=== PATIENT | female | born 1975 | race Caucasian/White ===

== ENCOUNTER 2017-07-01 12:10 | Emergency (ER) | payer SELFPAY ==
--- NOTE | 2017-07-01 12:30 | ERPHSYRPT ---
- History of Present Illness Time Seen by Provider: 07/01/17 12:27 Source: patient Exam Limitations: no limitations Patient Subjective Stated Complaint: was putting camper up for the winter when it came down on right hand. states she felt nausea and weakness after it happened. Triage Nursing Assessment: to room per w/c. third digit right hand bruised and swollen. abrasion noted to finger. chemical cold pack on. Physician History: was putting camper up for the winter when it came down on right hand. states she felt nausea and weakness after it happened. no other injury Occurred: just prior to arrival Method of Injury: direct blow Quality: constant Severity of Pain-Max: moderate Severity of Pain-Current: mild Extremities Pain Location: hand: right, 3rd finger: right, 4th finger: right Modifying Factors: Improves With: cold therapy Associated Symptoms: none Allergies/Adverse Reactions: No Known Drug Allergies Allergy (Verified 07/01/17 12:12) Home Medications: No Home Meds [No Home Meds] 1 ea UD 07/16/16 [History] Hx Tetanus, Diphtheria Vaccination/Date Given: Yes (2015) Hx Influenza Vaccination/Date Given: No Hx Pneumococcal Vaccination/Date Given: No - Review of Systems Constitutional: No Symptoms Musculoskeletal: Injury, Joint Redness, Joint Pain, Joint Swelling, No Deformity - Past Medical History Pertinent Past Medical History: Yes Neurological History: No Pertinent History ENT History: No Pertinent History Cardiac History: No Pertinent History, Arrhythmia Respiratory History: No Pertinent History Endocrine Medical History: No Pertinent History Musculoskeletal History: No Pertinent History GI Medical History: No Pertinent History History: No Pertinent History Psycho-Social History: No Pertinent History Female Reproductive Disorders: No Pertinent History - Past Surgical History Past Surgical History: Yes Neuro Surgical History: No Pertinent History Cardiac: No Pertinent History Respiratory: No Pertinent History Gastrointestinal: Cholecystectomy Genitourinary: No Pertinent History Musculoskeletal: No Pertinent History Female Surgical History: Hysterectomy Other Surgical History: ablasion--heart - Social History Smoking Status: Current every day smoker How long have you smoked: 20 Exposure to second hand smoke: Yes Drug Use: none Patient Lives Alone: No - Nursing Vital Signs Nursing Vital Signs: Initial Vital Signs Temperature 98 F 07/01/17 12:12 Pulse Rate 92 H 07/01/17 12:12 Respiratory Rate 16 07/01/17 12:12 Blood Pressure 151/92 07/01/17 12:12 O2 Sat by Pulse Oximetry 94 L 07/01/17 12:12 Pain Scale Pain Intensity 10 - Physical Exam General Appearance: no apparent distress Hand Exam: ecchymosis, limited ROM, nail injury, soft tissue tenderness, swelling, No bone tenderness, No deformity, No infection, No laceration SpO2: 94 Oxygen Delivery: Room Air - Course Nursing assessment & vital signs reviewed: Yes - Radiology Exams Hand X-ray Interpretation: Reviewed by me (nondisplaced distal tuft finger fracture) Ordered Tests: Active Orders 24 hr Category Date Time Status Splint STAT Care 07/01/17 12:57 Active HAND (MINIMUM 3 VIEWS) Stat Exams 07/01/17 12:27 Taken Medication Summary Discontinued Medications Generic Name Dose Route Start Last Admin Trade Name Mari PRN Reason Stop Dose Admin Bacitracin Confirm 07/01/17 12:57 Baciguent Packet Administered 07/01/17 12:58 Dose 1 gm .ROUTE .STK-MED ONE Ketorolac Tromethamine 60 mg 07/01/17 13:00 Toradol 30 Mg Injection IM 07/01/17 13:01 STAT ONE - Progress Progress: improved, pain not gone completely Counseled pt/family regarding: diagnosis, need for follow-up, rad results - Departure Time of Disposition: 12:58 Departure Disposition: Home Clinical Impression: Fracture, finger, distal phalanx Qualifiers: Encounter type: initial encounter Finger: middle finger Fracture type: closed Fracture alignment: nondisplaced Laterality: right Qualified Code(s): S62.662A - Nondisplaced fracture of distal phalanx of right middle finger, initial encounter for closed fracture Condition: Good Critical Care Time: No Referrals: ADDIS WALLS MD [Primary Care Provider] - Instructions: Finger Fracture Additional Instructions: Please follow the instructions given to you. Please take your medication as prescribed if given. If symptoms recur or get worse, come back to the emergency room if you cannot reach your primary care physician, or call your primary care physician for an appointment. Again if your symptoms get worse, come back to the emergency room. Thanks for visiting emergency room, and let us take care of you. Prescriptions: Naproxen 375 mg [Naprosyn 375 mg] 375 mg PO Q8H #30 tablet
[2017-07-01] MEDS ORDERED: BACIGUENT PACKET ONE (12:57)
[2017-07-01] MEDS ORDERED: TORAdol 30 mg Injection IM ONE (13:00)
[2017-07-01] MEDS ORDERED: BACIGUENT PACKET TP ONE (13:12)
[2017-07-01] MEDS ORDERED: TORAdol 30 mg Injection ONE (13:14)
[2017-07-01 13:25] VITALS: BP 147/40; PULSE 81; O2SAT 95
--- NOTE | 2017-07-01 20:01 | XRAY ---
Indication: Third finger pain following injury. Comparison: None 3 views of the right hand demonstrates nondisplaced comminuted third tuft fracture with soft tissue swelling. No other bony, articular, or soft tissue abnormalities.
== END 2017-07-01 13:38 | disposition home or self-care (01) ==
LOC: ED 12:10
DX: S62.662A Nondisplaced fracture of distal phalanx of right middle finger, initial encounter for closed fracture (principal); W20.8XXA Other cause of strike by thrown, projected or falling object, initial encounter
CPT/HCPCS: 73130; 96372; 99284; J1885; A9270-GY

== ENCOUNTER 2022-04-04 11:28 | Observation (INO) | payer OTHER, SELFPAY ==
[2022-04-04] MEDS ORDERED: Adenocard IV 6 MG/2 ML IV ONE ×2 (11:36→11:43)
--- NOTE | 2022-04-04 11:51 | ERPHSYRPT ---
- History of Present Illness Time Seen by Provider: 04/04/22 11:45 Source: patient Exam Limitations: no limitations Physician History: Patient is a 46-year-old female presents to our ED for evaluation of heart palpitations. Patient states she was sitting at work developed heart palpitations and started to feel dizzy and diaphoretic. Patient admits to history of recurrent heart palpitations but states that it would typically resolve spontaneously. This particular episode did not resolve spontaneously. Upon arrival to our ED patient was in SVT with a rate of 205. Patient was maintaining good blood pressure she was mentating fine. We tried various vagal maneuvers and converted patient. No chest pain. No nausea vomiting or diarrhea. Symptoms are mild to moderate in intensity. No specific worsening improving factors. 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 Patient voices no other complaints or concerns at this time. Timing/Duration: today Severity: moderate Modifying Factors: Improves With: nothing Associated Symptoms: diaphoresis, other (Dizzy) Allergies/Adverse Reactions: No Known Drug Allergies Allergy (Verified 04/04/22 11:56) Home Medications: No Reportable Medications [No Reported Medications] 04/04/22 [History] Hx Tetanus, Diphtheria Vaccination/Date Given: Yes (2015) Hx Influenza Vaccination/Date Given: No Hx Pneumococcal Vaccination/Date Given: No - Review of Systems Constitutional: No Symptoms, No Fever, No Chills Eyes: No Symptoms Ears, Nose, & Throat: No Symptoms Respiratory: No Symptoms, No Cough, No Dyspnea Cardiac: No Symptoms, No Chest Pain, No Edema, No Syncope Abdominal/Gastrointestinal: No Symptoms, No Abdominal Pain, No Nausea, No Vomiting, No Diarrhea Genitourinary Symptoms: No Symptoms, No Dysuria Musculoskeletal: No Symptoms, No Back Pain, No Neck Pain Skin: No Symptoms, No Rash Neurological: No Symptoms, No Dizziness, No Focal Weakness, No Sensory Changes Psychological: No Symptoms Endocrine: No Symptoms Hematologic/Lymphatic: No Symptoms Immunological/Allergic: No Symptoms All Other Systems: Reviewed and Negative - Past Medical History Pertinent Past Medical History: Yes Neurological History: No Pertinent History ENT History: No Pertinent History Cardiac History: No Pertinent History, Arrhythmia Respiratory History: No Pertinent History Endocrine Medical History: No Pertinent History Musculoskeletal History: No Pertinent History GI Medical History: No Pertinent History History: No Pertinent History Psycho-Social History: No Pertinent History Female Reproductive Disorders: No Pertinent History - Past Surgical History Past Surgical History: Yes Neuro Surgical History: No Pertinent History Cardiac: No Pertinent History Respiratory: No Pertinent History Gastrointestinal: Cholecystectomy Genitourinary: No Pertinent History Musculoskeletal: No Pertinent History Female Surgical History: Hysterectomy Other Surgical History: ablasion--heart - Social History Smoking Status: Current every day smoker How long have you smoked: 20 Exposure to second hand smoke: Yes Drug Use: none Patient Lives Alone: No - Female History Hx Now: No - Nursing Vital Signs Nursing Vital Signs: Initial Vital Signs Temperature 96.8 F 04/04/22 11:30 Pulse Rate 217 H 04/04/22 11:30 Respiratory Rate 22 04/04/22 11:30 Blood Pressure 193/128 04/04/22 11:30 O2 Sat by Pulse Oximetry 99 04/04/22 11:30 Pain Scale Pain Intensity 6 - Physical Exam General Appearance: no apparent distress, mild distress (Mildly diaphoretic. Short of breath.), alert Eye Exam: PERRL/EOMI, eyes nml inspection Ears, Nose, Throat Exam: normal ENT inspection, TMs normal, pharynx normal, moist mucous membranes Neck Exam: normal inspection, non-tender, supple, full range of motion Respiratory Exam: normal breath sounds, lungs clear, airway intact, No chest tenderness, No respiratory distress Cardiovascular Exam: regular rate/rhythm, normal heart sounds, normal peripheral pulses Gastrointestinal/Abdomen Exam: soft, normal bowel sounds, No tenderness, No mass Back Exam: normal inspection, normal range of motion, No CVA tenderness, No vertebral tenderness Extremity Exam: normal inspection, normal range of motion, pelvis stable Neurologic Exam: alert, oriented x 3, cooperative, normal mood/affect, nml cerebellar function, nml station & gait, sensation nml, No motor deficits Skin Exam: normal color, warm, dry, No rash Lymphatic Exam: No adenopathy SpO2 Interpretation: normal SpO2: 99 O2 Delivery: Room Air - Course Nursing assessment & vital signs reviewed: Yes EKG Interpreted by Me: RATE (204, SVT), SVT, NORMAL AXIS, NORMAL INTERVALS - Radiology Exams Chest X-ray Interpretation: Teleradiologist Report (No acute cardiopulmonary process observed) Ordered Tests: Active Orders 24 hr Category Date Time Status Basic Acoustic Analyst STAT Care 04/04/22 11:43 Active EKG-ER Only STAT Care 04/04/22 11:43 Active IV Insertion STAT Care 04/04/22 11:43 Active Pulse Oximetry (ED) STAT Care 04/04/22 11:43 Active CHEST 1 VIEW (PORTABLE) Stat Exams 04/04/22 11:43 Completed CBC W DIFF Stat Lab 04/04/22 11:40 Completed CMP Stat Lab 04/04/22 11:40 Completed D-DIMER QUANTITATIVE Stat Lab 04/04/22 11:40 Completed MAGNESIUM Stat Lab 04/04/22 11:40 Completed NT PRO BNP Stat Lab 04/04/22 11:40 Completed TROPONIN Q3H Lab 04/04/22 11:40 Completed TROPONIN Q3H Lab 04/04/22 14:45 Ordered TROPONIN Q3H Lab 04/04/22 17:45 Ordered TROPONIN Q3H Lab 04/04/22 20:45 Ordered TROPONIN Q3H Lab 04/04/22 23:45 Ordered UA W/RFX CULTURE Stat Lab 04/04/22 12:42 Completed Urine Triage Profile Stat Lab 04/04/22 12:42 Completed Transfer Order Routine Transfer 04/04/22 Ordered Medication Summary Discontinued Medications Generic Name Dose Route Start Last Admin Trade Name Mari PRN Reason Stop Dose Admin Adenosine Confirm 04/04/22 11:36 Adenosine 6 Mg/2 Ml Vial Administered 04/04/22 11:37 Dose 6 mg IV .STK-MED ONE Adenosine 6 mg 04/04/22 11:43 04/04/22 14:22 Adenosine 6 Mg/2 Ml Vial IV 04/04/22 11:44 Not Given STAT ONE Lab/Rad Data: Laboratory Result Diagrams 04/04/22 11:40 04/04/22 11:40 Laboratory Results 04/04/22 04/04/22 04/04/22 Range/Units Unknown 12:42 12:42 WBC (4.0-10.5) x10^3/uL RBC (4.1-5.4) x10^6/uL Hgb (12.0-16.0) g/dL Hct (35-47) % MCV (78-100) fL MCH (26-32) pg MCHC (32-36) g/dL RDW (11.5-14.0) % Plt Count (150-450) x10^3/uL MPV (7.5-11.0) fL Gran % (36.0-66.0) % Immature Gran % (Auto) (0.00-0.4) % Nucleat RBC Rel Count (0.00-0.1) % Eos # (Auto) (0-0.5) x10^3/uL Immature Gran # (Auto) (0.00-0.03) x10^3u/L Absolute Lymphs (auto) (1.0-4.6) x10^3/uL Absolute Monos (auto) (0.0-1.3) x10^3/uL Absolute Nucleated RBC (0.00-0.01) x10^3u/L Lymphocytes % (24.0-44.0) % Monocytes % (0.0-12.0) % Eosinophils % (0.00-5.0) % Basophils % (0.0-0.4) % Absolute Granulocytes (1.4-6.9) x10^3/uL Basophils # (0-0.4) x10^3/uL D-Dimer (0.0-0.50) mg/L Sodium (137-145) mmol/L Potassium (3.5-5.1) mmol/L Chloride (98-107) mmol/L Carbon Dioxide (22-30) mmol/L Anion Gap (5-15) MEQ/L BUN (7-17) mg/dL Creatinine (0.52-1.04) mg/dL Estimated GFR ML/MIN Glucose (74-106) mg/dL Calcium (8.4-10.2) mg/dL Magnesium (1.6-2.3) mg/dL Total Bilirubin (0.2-1.3) mg/dL AST (14-36) U/L ALT (0-35) U/L Alkaline Phosphatase (38-126) U/L Troponin I (0.000-0.034) ng/mL NT-Pro-B Natriuret Pep (0-450) pg/mL Serum Total Protein (6.3-8.2) g/dL Albumin (3.5-5.0) g/dL Urinalys Dipstick Clnc MAIN LAB Urine Color YELLOW (YELLOW) Urine Appearance CLEAR (CLEAR) Urine pH 6.0 (5-6) Ur Specific [place] <=1.005 (1.005-1.025) POC Urine Protein Conf NEGATIVE (Negative) Urine Ketones NEGATIVE (NEGATIVE) Urine Nitrite NEGATIVE (NEGATIVE) Urine Bilirubin NEGATIVE (NEGATIVE) Urine Urobilinogen 0.2 (0-1) mg/dL Urine Leukocytes NEGATIVE (NEGATIVE) Urine WBC (Auto) NONE (0-5) /HPF Urine RBC (Auto) NONE (0-2) /HPF U Epithel Cells (Auto) NONE (FEW) /HPF Urine Bacteria (Auto) NONE (NEGATIVE) /HPF Urine RBC TRACE-LYSED (0-5) Delfino/ul Ur Culture Indicated? NO Urine Glucose NEGATIVE (NEGATIVE) mg/dL Urine Opiates Level NEGATIVE (NEGATIVE) Ur Methadone NEGATIVE (NEGATIVE) Urine Barbiturates NEGATIVE (NEGATIVE) Ur Phencyclidine (PCP) NEGATIVE (NEGATIVE) Urine Amphetamine NEGATIVE (NEGATIVE) U Benzodiazepine Level NEGATIVE (NEGATIVE) Urine Cocaine NEGATIVE (NEGATIVE) Urine Marijuana (THC) NEGATIVE (NEGATIVE) Influenza Type A Ag NEGATIVE (NEGATIVE) Influenza Type B Ag NEGATIVE (NEGATIVE) RSV (PCR) NEGATIVE (Negative) SARS-CoV-2 (PCR) NEGATIVE (NEGATIVE) 04/04/22 04/04/22 04/04/22 Range/Units 11:40 11:40 11:40 WBC (4.0-10.5) x10^3/uL RBC (4.1-5.4) x10^6/uL Hgb (12.0-16.0) g/dL Hct (35-47) % MCV (78-100) fL MCH (26-32) pg MCHC (32-36) g/dL RDW (11.5-14.0) % Plt Count (150-450) x10^3/uL MPV (7.5-11.0) fL Gran % (36.0-66.0) % Immature Gran % (Auto) (0.00-0.4) % Nucleat RBC Rel Count (0.00-0.1) % Eos # (Auto) (0-0.5) x10^3/uL Immature Gran # (Auto) (0.00-0.03) x10^3u/L Absolute Lymphs (auto) (1.0-4.6) x10^3/uL Absolute Monos (auto) (0.0-1.3) x10^3/uL Absolute Nucleated RBC (0.00-0.01) x10^3u/L Lymphocytes % (24.0-44.0) % Monocytes % (0.0-12.0) % Eosinophils % (0.00-5.0) % Basophils % (0.0-0.4) % Absolute Granulocytes (1.4-6.9) x10^3/uL Basophils # (0-0.4) x10^3/uL D-Dimer 0.26 (0.0-0.50) mg/L Sodium 136 L (137-145) mmol/L Potassium 3.8 (3.5-5.1) mmol/L Chloride 109 H (98-107) mmol/L Carbon Dioxide 15 L* (22-30) mmol/L Anion Gap 15.4 H (5-15) MEQ/L BUN 9 (7-17) mg/dL Creatinine 0.66 (0.52-1.04) mg/dL Estimated GFR > 60.0 ML/MIN Glucose 154 H (74-106) mg/dL Calcium 9.1 (8.4-10.2) mg/dL Magnesium 1.9 (1.6-2.3) mg/dL Total Bilirubin 0.40 (0.2-1.3) mg/dL AST 21 (14-36) U/L ALT 20 (0-35) U/L Alkaline Phosphatase 82 (38-126) U/L Troponin I < 0.012 (0.000-0.034) ng/mL NT-Pro-B Natriuret Pep 203 (0-450) pg/mL Serum Total Protein 7.6 (6.3-8.2) g/dL Albumin 4.1 (3.5-5.0) g/dL Urinalys Dipstick Clnc Urine Color (YELLOW) Urine Appearance (CLEAR) Urine pH (5-6) Ur Specific [place] (1.005-1.025) POC Urine Protein Conf (Negative) Urine Ketones (NEGATIVE) Urine Nitrite (NEGATIVE) Urine Bilirubin (NEGATIVE) Urine Urobilinogen (0-1) mg/dL Urine Leukocytes (NEGATIVE) Urine WBC (Auto) (0-5) /HPF Urine RBC (Auto) (0-2) /HPF U Epithel Cells (Auto) (FEW) /HPF Urine Bacteria (Auto) (NEGATIVE) /HPF Urine RBC (0-5) Delfino/ul Ur Culture Indicated? Urine Glucose (NEGATIVE) mg/dL Urine Opiates Level (NEGATIVE) Ur Methadone (NEGATIVE) Urine Barbiturates (NEGATIVE) Ur Phencyclidine (PCP) (NEGATIVE) Urine Amphetamine (NEGATIVE) U Benzodiazepine Level (NEGATIVE) Urine Cocaine (NEGATIVE) Urine Marijuana (THC) (NEGATIVE) Influenza Type A Ag (NEGATIVE) Influenza Type B Ag (NEGATIVE) RSV (PCR) (Negative) SARS-CoV-2 (PCR) (NEGATIVE) 04/04/22 Range/Units 11:40 WBC 14.7 H (4.0-10.5) x10^3/uL RBC 4.95 (4.1-5.4) x10^6/uL Hgb 15.0 (12.0-16.0) g/dL Hct 45.2 (35-47) % MCV 91.3 (78-100) fL MCH 30.3 (26-32) pg MCHC 33.2 (32-36) g/dL RDW 13.2 (11.5-14.0) % Plt Count 339 (150-450) x10^3/uL MPV 9.6 (7.5-11.0) fL Gran % 55.0 (36.0-66.0) % Immature Gran % (Auto) 0.5 H (0.00-0.4) % Nucleat RBC Rel Count 0.0 (0.00-0.1) % Eos # (Auto) 0.09 (0-0.5) x10^3/uL Immature Gran # (Auto) 0.07 H (0.00-0.03) x10^3u/L Absolute Lymphs (auto) 5.46 H (1.0-4.6) x10^3/uL Absolute Monos (auto) 0.94 (0.0-1.3) x10^3/uL Absolute Nucleated RBC 0.00 (0.00-0.01) x10^3u/L Lymphocytes % 37.1 (24.0-44.0) % Monocytes % 6.4 (0.0-12.0) % Eosinophils % 0.6 (0.00-5.0) % Basophils % 0.4 (0.0-0.4) % Absolute Granulocytes 8.08 H (1.4-6.9) x10^3/uL Basophils # 0.06 (0-0.4) x10^3/uL D-Dimer (0.0-0.50) mg/L Sodium (137-145) mmol/L Potassium (3.5-5.1) mmol/L Chloride (98-107) mmol/L Carbon Dioxide (22-30) mmol/L Anion Gap (5-15) MEQ/L BUN (7-17) mg/dL Creatinine (0.52-1.04) mg/dL Estimated GFR ML/MIN Glucose (74-106) mg/dL Calcium (8.4-10.2) mg/dL Magnesium (1.6-2.3) mg/dL Total Bilirubin (0.2-1.3) mg/dL AST (14-36) U/L ALT (0-35) U/L Alkaline Phosphatase (38-126) U/L Troponin I (0.000-0.034) ng/mL NT-Pro-B Natriuret Pep (0-450) pg/mL Serum Total Protein (6.3-8.2) g/dL Albumin (3.5-5.0) g/dL Urinalys Dipstick Clnc Urine Color (YELLOW) Urine Appearance (CLEAR) Urine pH (5-6) Ur Specific [place] (1.005-1.025) POC Urine Protein Conf (Negative) Urine Ketones (NEGATIVE) Urine Nitrite (NEGATIVE) Urine Bilirubin (NEGATIVE) Urine Urobilinogen (0-1) mg/dL Urine Leukocytes (NEGATIVE) Urine WBC (Auto) (0-5) /HPF Urine RBC (Auto) (0-2) /HPF U Epithel Cells (Auto) (FEW) /HPF Urine Bacteria (Auto) (NEGATIVE) /HPF Urine RBC (0-5) Delfino/ul Ur Culture Indicated? Urine Glucose (NEGATIVE) mg/dL Urine Opiates Level (NEGATIVE) Ur Methadone (NEGATIVE) Urine Barbiturates (NEGATIVE) Ur Phencyclidine (PCP) (NEGATIVE) Urine Amphetamine (NEGATIVE) U Benzodiazepine Level (NEGATIVE) Urine Cocaine (NEGATIVE) Urine Marijuana (THC) (NEGATIVE) Influenza Type A Ag (NEGATIVE) Influenza Type B Ag (NEGATIVE) RSV (PCR) (Negative) SARS-CoV-2 (PCR) (NEGATIVE) - Progress Progress: improved Progress Note: Patient reassessed. She feels well. No chest pain. SVT resolved after vagal maneuvers. Bicarb 15. This may be due to hyperventilation. Chest x-ray negative for acute cardiopulmonary pathology. COVID test negative. Case discussed with Dr. Walls who accepts admission to observation. Plan of care discussed with patient. She agrees to admission at [facility] for further evaluation and treatment. Portions of this note were created with voice recognition technology. There may be grammatical, spelling, punctuation or sound alike errors 04/04/22 14:[address] Yesy Will see patient in: hospital (observation) Counseled pt/family regarding: lab results, diagnosis, rad results - Departure Departure Disposition: Home Clinical Impression: SVT (supraventricular tachycardia), Lung granuloma Condition: Stable Critical Care Time: No Referrals: ADDIS WALLS MD [Primary Care Provider] - Follow up/PCP as directed
[2022-04-04 11:53] LABS: Absolute Neutrophil Ct (ANC) 8.08 x10^3/uL (1.4-6.9); Basophil (Absolute #) 0.06 x10^3/uL (0-0.4); Eosinophil % 0.6 % (0.00-5.0); Eosinophil (Absolute #) 0.09 x10^3/uL (0-0.5); Hematocrit 45.2 % (35-47); Lymphocyte (Absolute #) 5.46 x10^3/uL (1.0-4.6); Lymphocytes % 37.1 % (24.0-44.0); Mean Cell Volume 91.3 fL (78-100); Mean Corpuscular Hemoglobin 30.3 pg (26-32); Mean Corpuscular Hgb Concent. 33.2 g/dL (32-36); Mean Platelet Volume 9.6 fL (7.5-11.0); Monocyte (Absolute #) 0.94 x10^3/uL (0.0-1.3); Monocytes % 6.4 % (0.0-12.0); Platelet Count 339 x10^3/uL (150-450); Red Blood Count 4.95 x10^6/uL (4.1-5.4); Red Cell Distribution Width 13.2 % (11.5-14.0); White Blood Count 14.7 x10^3/uL (4.0-10.5)
[2022-04-04 12:15] LABS: ALBUMIN 4.1 g/dL (3.5-5.0); ALKALINE PHOSPHATASE 82 U/L (38-126); ANION GAP 15.4 MEQ/L (5-15); BLOOD UREA NITROGEN 9 mg/dL (7-17); CHLORIDE 109 mmol/L (98-107); Calcium 9.1 mg/dL (8.4-10.2); Creatinine 1 0.66 mg/dL (0.52-1.04); EST GLOMERULAR FILTRATION RATE > 60.0 ML/MIN; Glucose 154 mg/dL (74-106); MAGNESIUM 1.9 mg/dL (1.6-2.3); NT PRO BNP 203 pg/mL (0-450); Potassium 3.8 mmol/L (3.5-5.1); SGOT/AST 21 U/L (14-36); SGPT/ALT 20 U/L (0-35); SODIUM 136 mmol/L (137-145); Total Protein 7.6 g/dL (6.3-8.2)
--- NOTE | 2022-04-04 12:18 | XRAY ---
Exam: AP upright portable chest film from 04/04/2022. Comparison: [None.] Indication: 46-year-old female with sudden onset of chest pain with shortness of breath; heart palpitations; no past history of heart or lung problems. Findings: EKG leads are seen in place. The heart size and contour are normal. The nitin and mediastinal structures appear intact. The lung hernandez are well-expanded. There may be a small calcified granuloma behind the heart at the medial left lung base. No air space infiltrates, vascular congestion, pneumothorax, or pleural fluid is seen. No acute osseous process is seen. Impression: 1. No acute cardiopulmonary disease is seen.
[2022-04-04 12:20] LABS: Carbon Dioxide 15 mmol/L (22-30)
[2022-04-04 12:51] LABS: Appearance CLEAR (CLEAR); Bilirubin NEGATIVE (NEGATIVE); Glucose NEGATIVE (NEGATIVE); Ketones NEGATIVE (NEGATIVE); Protein,Urine Dip NEGATIVE (Negative); RBC TRACE-LYSED Ery/ul (0-5); Specific Gravity <=1.005 (1.005-1.025)
[2022-04-04 12:52] LABS: Dipstick done @ ? MAIN LAB; Nitrite NEGATIVE (NEGATIVE); Urine Cultured Indicated? NO; Urobilinogen 0.2 mg/dL (0-1)
[2022-04-04 12:55] LABS: Amphetamine,Urine NEGATIVE (NEGATIVE); Barbiturate,Urine NEGATIVE (NEGATIVE); Benzodiazepine,Urine NEGATIVE (NEGATIVE); Cocaine,Urine NEGATIVE (NEGATIVE); Methadone,Urine NEGATIVE (NEGATIVE); Opiate,Urine NEGATIVE (NEGATIVE); PCP,Urine NEGATIVE (NEGATIVE); THC,Urine NEGATIVE (NEGATIVE)
[2022-04-04 14:42] LABS: INFLUENZA A NEGATIVE (NEGATIVE); INFLUENZA B NEGATIVE (NEGATIVE); RESPIRATORY SYNCTIAL VIRUS NEGATIVE (Negative); SARS-CoV-2 Xpert Express NEGATIVE (NEGATIVE)
[2022-04-04] MEDS ORDERED: MAALOX ES 30 ML UNIT DOSE PO PRN (14:55)
[2022-04-04] MEDS ORDERED: MILK OF MAGNESIA 30 ML PO PRN (14:55)
[2022-04-04] MEDS ORDERED: Senokot-S Tablet PO PRN (14:55)
[2022-04-04] MEDS ORDERED: Zofran 4 MG/2 ML VIAL IV PRN (14:55)
[2022-04-04] MEDS ORDERED: TYLENOL 325 MG PO PRN (14:55)
[2022-04-04] MEDS: Cardizem CD PO SCH (17:45)
[2022-04-04] MEDS ORDERED: VENTOLIN COMMON CANISTER IH PRN (20:02)
[2022-04-05 08:00] VITALS: BP 144/67; PULSE 73; O2SAT 92
[2022-04-05] MEDS: Cardizem CD PO SCH (09:34)
--- NOTE | 2022-04-05 13:04 | PCM.SSS ---
History of Present Illness - Chief Complaint Chief Complaint: c/o palpitations for 1-2 days History of Present Illness: is a 46 year old female.resents to our ED for evaluation of heart palpitations. Patient states she was sitting at work developed heart palpitations and started to feel dizzy and diaphoretic. Patient admits to history of recurrent heart palpitations but states that it would typically resolve spontaneously. This particular episode did not resolve spontaneously. Upon arrival to our ED patient was in SVT with a rate of 205. Patient was maintaining good blood pressure she was mentating fine. We tried various vagal maneuvers and converted patient. No chest pain. No nausea vomiting or diarrhea. Symptoms are mild to moderate in intensity. No specific worsening improving factors. 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 Patient voices no other complaints or concerns at this time. - Review of Systems Constitutional: No Fever, No Chills Eyes: No Symptoms Ears, Nose, & Throat: No Symptoms Respiratory: No Cough, No Short Of Breath Cardiac: Palpitations, No Chest Pain, No Edema, No Syncope Abdominal/Gastrointestinal: No Abdominal Pain, No Nausea, No Vomiting, No Diarrhea Genitourinary Symptoms: No Dysuria Musculoskeletal: No Back Pain, No Neck Pain Skin: No Rash Neurological: No Dizziness, No Focal Weakness, No Sensory Changes Psychological: No Symptoms Endocrine: No Symptoms Hematologic/Lymphatic: No Symptoms Immunological/Allergic: No Symptoms Medications & Allergies Home Medications: Home Medication List Diltiazem HCl [Cartia Xt] 240 mg PO DAILY #30 04/05/22 [Rx] Allergies/Adverse Reactions: Allergies Allergy/AdvReac Type Severity Reaction Status Date / Time No Known Drug Allergies Allergy Verified 04/04/22 11:56 - Past Medical History Past Medical History: Yes Neurological History: No Pertinent History ENT History: No Pertinent History Cardiac History: No Pertinent History, Arrhythmia Respiratory History: No Pertinent History Endocrine Medical History: No Pertinent History Musculoskelatal History: No Pertinent History GI Medical History: No Pertinent History History: No Pertinent History Pyscho-Social History: No Pertinent History Reproductive Disorders: No Pertinent History - Female History Hx Last Menstrual Period: Don't have anymore Are you now?: No - Past Surgical History Past Surgical History: Yes Neuro Surgical History: No Pertinent History Cardiac History: No Pertinent History Respiratory Surgery: No Pertinent History GI Surgical History: Cholecystectomy Genitourinary Surgical Hx: No Pertinent History Musculskeletal Surgical Hx: No Pertinent History Female Surgical History: Hysterectomy Other Surgical History: ablasion--heart - Social History Smoking Status: Current every day smoker How long have you smoked: 20 Exposure to second hand smoke: Yes Alcohol: None Drug Use: none - Physical Exam Vital Signs: Vital Signs - 24 hr Temp Pulse Resp BP Pulse Ox 04/05/22 07:59 97.9 F 73 16 144/67 92 L 04/05/22 04:00 97.5 F 82 18 148/68 95 04/04/22 23:53 97.8 F 75 19 140/81 96 04/04/22 20:00 97.5 F 84 20 133/65 98 04/04/22 19:25 74 18 93 L 04/04/22 16:06 98.0 F 89 18 155/79 97 04/04/22 15:10 97.7 F 86 18 175/88 96 04/04/22 14:51 99 04/04/22 14:00 86 25 H 148/107 96 04/04/22 13:09 100 H 20 160/103 96 General Appearance: no apparent distress, alert Neurologic Exam: alert, oriented x 3, cooperative, normal mood/affect, nml cerebellar function, nml station & gait, sensation nml, No motor deficits Eye Exam: PERRL/EOMI, eyes nml inspection Ears, Nose, Throat Exam: normal ENT inspection, TMs normal, pharynx normal, moist mucous membranes Neck Exam: normal inspection, non-tender, supple, full range of motion Respiratory Exam: normal breath sounds, lungs clear, No respiratory distress Cardiovascular Exam: regular rate/rhythm, normal heart sounds, normal peripheral pulses Gastrointestinal/Abdomen Exam: soft, normal bowel sounds, No tenderness, No mass Back Exam: normal inspection, normal range of motion, No CVA tenderness, No vertebral tenderness Extremity Exam: normal inspection, normal range of motion, pelvis stable Skin Exam: normal color, warm, dry, No rash Lymphatic Exam: No adenopathy Results - Labs Lab/Micro Results: Lab Results-Last 24 Hours 04/04/22 04/04/22 04/04/22 Range/Units 15:14 17:35 21:00 Troponin I 0.023 0.031 0.025 (0.000-0.034) ng/mL Triglycerides (30-150) mg/dL Cholesterol (50-200) mg/dL LDL Cholesterol (30-100) mg/dL HDL Cholesterol (40-60) mg/dL Heart Disease Risk Ratio Influenza Type A Ag (NEGATIVE) Influenza Type B Ag (NEGATIVE) RSV (PCR) (Negative) SARS-CoV-2 (PCR) (NEGATIVE) 04/04/22 04/04/22 04/05/22 Range/Units 23:59 Unknown 04:35 Troponin I 0.025 (0.000-0.034) ng/mL Triglycerides 291 H (30-150) mg/dL Cholesterol 181 (50-200) mg/dL LDL Cholesterol 113 H (30-100) mg/dL HDL Cholesterol 26 L (40-60) mg/dL Heart Disease Risk Ratio 7.0 Influenza Type A Ag NEGATIVE (NEGATIVE) Influenza Type B Ag NEGATIVE (NEGATIVE) RSV (PCR) NEGATIVE (Negative) SARS-CoV-2 (PCR) NEGATIVE (NEGATIVE) - Radiology Impressions Radiology Exams & Impressions: Radiology Procedures Category Date Time Status CHEST 1 VIEW (PORTABLE) Stat Exams 04/04/22 11:43 Completed Assessment/Plan (1) SVT (supraventricular tachycardia) Status: Acute Code(s): I47.1 - SUPRAVENTRICULAR TACHYCARDIA Hospital Summary - Hospital Course Hospital Course: Chief Complaint Diagnosis SVT Allergies Allergy/AdvReac Type Severity Reaction Status Date / Time No Known Drug Allergies Allergy Verified 04/04/22 11:56 Vital Signs (Last 24 hours) Temp Pulse Resp BP Pulse Ox 04/05/22 07:59 97.9 F 73 16 144/67 92 L 04/05/22 04:00 97.5 F 82 18 148/68 95 04/04/22 23:53 97.8 F 75 19 140/81 96 04/04/22 20:00 97.5 F 84 20 133/65 98 04/04/22 19:25 74 18 93 L 04/04/22 16:06 98.0 F 89 18 155/79 97 04/04/22 15:10 97.7 F 86 18 175/88 96 04/04/22 14:51 99 04/04/22 14:00 86 25 H 148/107 96 04/04/22 13:09 100 H 20 160/103 96 Home Medications Medication Instructions Recorded Confirmed Last Taken Type Diltiazem HCl [Cartia Xt] 240 mg PO DAILY #30 04/05/22 Unknown Rx Current Medications Discontinued Medications Generic Name Dose Route Start Last Admin Trade Name Mari PRN Reason Stop Dose Admin Acetaminophen 650 mg 04/04/22 14:55 04/05/22 07:17 Acetaminophen 325 Mg Tablet PO 05/04/22 14:54 650 mg Q4H PRN PRN Administration PAIN AND/OR FEVER Adenosine Confirm 04/04/22 11:36 Adenosine 6 Mg/2 Ml Vial Administered 04/04/22 11:37 Dose 6 mg IV .STK-MED ONE Adenosine 6 mg 04/04/22 11:43 04/04/22 14:22 Adenosine 6 Mg/2 Ml Vial IV 04/04/22 11:44 Not Given STAT ONE Al Hydrox/Mg Hydrox/Simethicone 30 ml 04/04/22 14:55 Mag Hydrox/Al Hydrox/Simeth 30 Ml Udcup PO 05/04/22 14:54 Q4H PRN PRN INDIGESTION Albuterol Sulfate 4 puff 04/04/22 20:02 04/04/22 19:25 Albuterol Common Canister Inhaler IH 05/04/22 20:01 4 puff 1XONLY PRN Administration SHORTNESS OF BREATH/WHEEZING Diltiazem HCl 240 mg 04/04/22 17:45 04/05/22 09:34 Diltiazem Hcl Cd 120 Mg Cap.Sr.24h PO 05/04/22 17:44 240 mg DAILY JOSHUA Administration Magnesium Hydroxide 30 - 60 ml 04/04/22 14:55 Magnesium Hydroxide 30 Ml Udcup PO 05/04/22 14:54 QDP PRN CONSTIPATION Ondansetron HCl 4 mg 04/04/22 14:55 Ondansetron Hcl 4 Mg/2 Ml Vial IV 05/04/22 14:54 Q4H PRN PRN NAUSEA/VOMITING Senna/Docusate Sodium 2 udtab 04/04/22 14:55 Senna/Docusate Sodium 1 Udtab Tablet PO 05/04/22 14:54 BID PRN PRN CONSTIPATION Intake & Output (Last 24 hours) 04/03/22 04/04/22 04/05/22 04/06/22 11:59 11:59 11:59 11:59 Intake Total 1500 Balance 1500 Weight 101.8 kg 101.8 kg Laboratory Results (Last 24 hours) 04/05/22 04/04/22 04/04/22 04:35 Unknown 23:59 Troponin I 0.025 Triglycerides 291 H Cholesterol 181 LDL Cholesterol 113 H HDL Cholesterol 26 L Heart Disease Risk Ratio 7.0 Influenza Type A Ag NEGATIVE Influenza Type B Ag NEGATIVE RSV (PCR) NEGATIVE SARS-CoV-2 (PCR) NEGATIVE 04/04/22 04/04/22 04/04/22 21:00 17:35 15:14 Troponin I 0.025 0.031 0.023 Triglycerides Cholesterol LDL Cholesterol HDL Cholesterol Heart Disease Risk Ratio Influenza Type A Ag Influenza Type B Ag RSV (PCR) SARS-CoV-2 (PCR) Orders (Last 24 hours) Category Date Time Status Bedrest with BRP/BSC ROUTINE Activity 04/04/22 14:55 Completed Code Status Order ROUTINE Care 04/04/22 14:55 Completed IV Care Q6H Care 04/04/22 14:55 Completed Implement Chest Pain Pathway ROUTINE Care 04/04/22 14:[address] in Observation ROUTINE Care 04/04/22 14:55 Completed Tor[place], Apply ROUTINE Care 04/04/22 14:55 Completed Telemetry q6h Care 04/04/22 14:55 Completed Weight,Daily 0600 Care 04/04/22 14:55 Completed Heart-Healthy Diet Diet 04/04/22 Dinner Completed Discharge Routine Discharge 04/05/22 Ordered LIPID PROFILE AM.LAB Lab 04/05/22 04:35 Completed TROPONIN Q3H Lab 04/04/22 15:14 Completed TROPONIN Q3H Lab 04/04/22 17:35 Completed TROPONIN Q3H Lab 04/04/22 21:00 Completed TROPONIN Q3H Lab 04/04/22 23:59 Completed UA W/RFX CULTURE Stat Lab 04/04/22 12:42 Completed Urine Triage Profile Stat Lab 04/04/22 12:42 Completed Acetaminophen 325 mg [Tylenol 325 mg] Med 04/04/22 14:55 Discontinued 650 mg PO Q4H PRN PRN Albuterol Common Canister [Ventolin Common Canister* Med 04/04/22 20:02 Discontinued ] 4 puff IH 1XONLY PRN Diltiazem HCl Cd [Cardizem CD ] Med 04/04/22 17:45 Discontinued 240 mg PO DAILY Mag Hydrox/Al Hydrox/Simeth [Maalox Es 30 ml Unit Med 04/04/22 14:55 Discontinued Dose] 30 ml PO Q4H PRN PRN Magnesium Hydroxide 30 ml [Milk of Magnesia 30 ml Med 04/04/22 14:55 Discontinued ] 30 - 60 ml PO QDP PRN Ondansetron HCl 4 mg/2 ml [Zofran 4 MG/2 ML VIAL] Med 04/04/22 14:55 Discontinued 4 mg IV Q4H PRN PRN Senna/Docusate Sodium Tab [Senokot-S Tablet] Med 04/04/22 14:55 Discontinued 2 udtab PO BID PRN PRN EKG ROUTINE RT 04/04/22 19:44 Completed EKG ROUTINE RT 04/05/22 05:00 Completed EKG ROUTINE RT 04/06/22 05:00 Completed EKG ROUTINE RT 04/07/22 05:00 Completed Pulse Oximetry Q4H RT 04/04/22 14:55 Completed Respiratory Therapy Assessment DAILY RT 04/04/22 20:03 Completed Patient Care Notes (Last 24 hours) 04/04/22 17:44 Nursing Note by Patricia Montiel pt in and out SVT, can get pt to convert by having her blow in straw but SR only lasts a few minutes, pt denies palpitations or chest pain, dr walls updated by phone and cardizem 240mg po ordered and given. Initialized on 04/04/22 17:44 - END OF NOTE - Vitals & Intake/Output Vital Signs: Vital Signs Temperature 97.9 F 04/05/22 07:59 Pulse Rate 73 04/05/22 07:59 Respiratory Rate 16 04/05/22 07:59 Blood Pressure 144/67 04/05/22 07:59 O2 Sat by Pulse Oximetry 92 L 04/05/22 07:59 Intake & Output: Intake & Output 04/03/22 04/04/22 04/05/22 04/06/22 11:59 11:59 11:59 11:59 Intake Total 1500 Balance 1500 Weight 101.8 kg 101.8 kg - Lab Result Diagrams: 04/04/22 11:40 04/04/22 11:40 Lab Results-Last 24 Hrs: Lab Results-Last 24 Hours 07/04/04/22 04/04/22 Range/Units 15:14 17:35 21:00 Troponin I 0.023 0.031 0.025 (0.000-0.034) ng/mL Triglycerides (30-150) mg/dL Cholesterol (50-200) mg/dL LDL Cholesterol (30-100) mg/dL HDL Cholesterol (40-60) mg/dL Heart Disease Risk Ratio Influenza Type A Ag (NEGATIVE) Influenza Type B Ag (NEGATIVE) RSV (PCR) (Negative) SARS-CoV-2 (PCR) (NEGATIVE) 04/04/22 04/04/22 04/05/22 Range/Units 23:59 Unknown 04:35 Troponin I 0.025 (0.000-0.034) ng/mL Triglycerides 291 H (30-150) mg/dL Cholesterol 181 (50-200) mg/dL LDL Cholesterol 113 H (30-100) mg/dL HDL Cholesterol 26 L (40-60) mg/dL Heart Disease Risk Ratio 7.0 Influenza Type A Ag NEGATIVE (NEGATIVE) Influenza Type B Ag NEGATIVE (NEGATIVE) RSV (PCR) NEGATIVE (Negative) SARS-CoV-2 (PCR) NEGATIVE (NEGATIVE) - Radiology Exams Ordered Rad Exams-Entire Visit: Radiology Procedures Category Date Time Status CHEST 1 VIEW (PORTABLE) Stat Exams 04/04/22 11:43 Completed - Procedures and Test Procedures and Tests throughout Hospitalization: Therapy Orders & Screens 04/04/22 19:44 EKG ROUTINE Comment: Diagnosis: SVT 04/04/22 20:03 Respiratory Therapy Assessment DAILY Comment: Diagnosis: SVT 04/05/22 05:00 EKG ROUTINE Comment: Diagnosis: SVT 04/06/22 05:00 EKG ROUTINE Comment: Diagnosis: SVT 04/07/22 05:00 EKG ROUTINE Comment: Diagnosis: SVT - Discharge Discharge Date: 04/05/22 Disposition: Home, Self-Care Condition: Stable Prescriptions: New Diltiazem HCl [Cartia Xt] 240 mg PO DAILY #30 Instructions: Supraventricular Tachycardia (SVT), Diltiazem Follow up with: ADDIS WALLS MD [Primary Care Provider] - 04/11/22 2:00 pm
== END 2022-04-05 09:48 | disposition home or self-care (01) ==
LOC: ED 11:28 → MED SURG 14:52
PROVIDERS: ADMIT General Practice; ATTEND General Practice
DX: I47.1 Supraventricular tachycardia (principal); R42 Dizziness and giddiness; Z72.0 Tobacco use; Z79.899 Other long term (current) drug therapy; Z20.828 Contact with and (suspected) exposure to other viral communicable diseases
CPT/HCPCS: 0241U; 36000; 36415; 71045; 80053; 80061; 80307; 81015; 83721; 83735; 83880; 84484; 85025; 85379; 93005; 93041; 94640; 94760; 99285; J0153; A9270-GY

== ENCOUNTER 2023-12-27 09:52 | Day surgery (SDC) | payer BC ==
--- NOTE | 2023-12-26 09:52 | HP ---
DATE OF SURGERY: 12/27/2023 HISTORY OF PRESENT ILLNESS: The patient is a 48-year-old female who presents with need for endoscopy. She has not had a colonoscopy to date. She has some left lower quadrant pain that comes and goes. She denies heartburn. She denies family history of colon cancer. She denies any other symptoms at this time. PAST MEDICAL HISTORY: Hypertension. PAST SURGICAL HISTORY: Cholecystectomy. Cardiac ablation for atrial fibrillation. Hysterectomy. ALLERGIES: NKDA. MEDICATIONS: Hydrochlorothiazide, Lisinopril. FAMILY HISTORY: Unknown. SOCIAL HISTORY: Current smoker, occasional alcohol. REVIEW OF SYSTEMS: CONSTITUTIONAL: Denies fever or chills. CHEST: Denies shortness of breath. CVS: Denies chest pain. ABDOMEN: Denies abdominal pain. PHYSICAL EXAMINATION: GENERAL: No acute distress. CHEST: Nonlabored. No shortness of breath. CVS: Regular rate and rhythm. ABDOMEN: Soft. IMPRESSION: Screening. PLAN: Colonoscopy with Dr. Constantino Stewart. As dictated by Yesica Mason NP.
[2023-12-27] MEDS: Lactated Ringers 1,000 ML IV SCH (10:06)
[2023-12-27] MEDS ORDERED: DIPRIVAN 200 MG/20 ML IV ONE ×2 (11:36→11:52)
[2023-12-27] MEDS ORDERED: Xylocaine-Mpf 2% 5 Ml Vial ONE (11:37)
[2023-12-27 12:33] VITALS: TEMP 96.3
[2023-12-27 12:52] VITALS: BP 152/92; PULSE 52; RESP 16; O2SAT 98
--- NOTE | 2023-12-27 13:38 | OP ---
SURGERY DATE/TIME: 12/27/2023 1137 PREOPERATIVE DIAGNOSIS: Screening. POSTOPERATIVE DIAGNOSIS: Normal examination. PROCEDURE: Colonoscopy to cecum. SURGEON: Constantino Stewart M.D. ANESTHESIA: MAC. COMPLICATIONS: None. CONDITION: Stable. INDICATION: The patient presents for screening. She is 48. She had excellent bowel prep. DESCRIPTION OF PROCEDURE: She is taken to endoscopy. Left lateral decubitus position. Anal digital examination satisfactory. Scope introduced. Scope advanced to the cecum. Base of the cecum, ileocecal valve, appendiceal orifice normal. Ascending, hepatic, transverse, splenic, descending, sigmoid, rectum, anus normal. PLAN: Follow up five to ten years.
== END 2023-12-27 13:00 | disposition home or self-care (01) ==
LOC: SDC 09:52
PROVIDERS: ATTEND Surgery
DX: Z12.11 Encounter for screening for malignant neoplasm of colon (principal); I10 Essential (primary) hypertension
CPT/HCPCS: 93005; J2704

== ENCOUNTER 2024-08-26 22:59 | Emergency (ER) | payer BC ==
--- NOTE | 2024-08-27 00:06 | ERPHSYRPT ---
- History of Present Illness Time Seen by Provider: 08/26/24 23:30 Source: patient Exam Limitations: no limitations Patient Subjective Stated Complaint: c/o upper back pain Triage Nursing Assessment: patient brought to ED by daughter with c/o upper back pain. rates pain 10/10 thats more intense on the elft side. patient states that the pain started on the 14th and hasn't gotten any better. pt also stated that the pain has made her short of breath. patient is hypertensive, skin w/n/d, gait steady, patient doesn't appear to be in any distress at this time. Physician History: 49-year-old female presents to our emergency department for evaluation of left upper back pain that started approximately 4 days ago. Pain described as an ache that is localized. Pain worse with movement and palpation. Pain improved with rest. No trauma no fever. However patient states that she does experience some level of shortness of breath with her pain. No nausea vomiting or diaphoresis. Daughter at bedside. They voiced no other complaints or concerns at this time. Patient declined pain medication. She states she took Tylenol just prior to arrival. Portions of this note were created with voice recognition technology. There may be grammatical, spelling, punctuation or sound alike errors Timing/Duration: today Method of Injury: unknown Quality: aching Back Pain Location: T-spine Severity of Pain-Max: moderate Severity of Pain-Current: moderate Modifying Factors: Improves With: movement Associated Symptoms: denies symptoms Previous symptoms: no prior history Allergies/Adverse Reactions: No Known Drug Allergies Allergy (Verified 08/26/24 23:31) Home Medications: Atorvastatin Calcium 10 mg PO DAILY 12/14/23 [History] Lisinopril 10 mg [Zestril 10 MG] 10 mg PO DAILY 12/14/23 [History] hydroCHLOROthiazide [Hydrochlorothiazide] 12.5 mg PO DAILY 12/14/23 [History] Hx Tetanus, Diphtheria Vaccination/Date Given: Yes Hx Influenza Vaccination/Date Given: No Hx Pneumococcal Vaccination/Date Given: No Travel Risk - International Travel Have you traveled outside of the country in past 3 weeks: No - Emerging Infectious Disease Are you exhibiting symptoms associated with any current EIDs: No - Review of Systems Constitutional: No Symptoms, No Fever, No Chills Eyes: No Symptoms Ears, Nose, & Throat: No Symptoms Respiratory: No Symptoms, No Cough, No Dyspnea Cardiac: No Symptoms, No Chest Pain, No Edema, No Syncope Abdominal/Gastrointestinal: No Symptoms, No Abdominal Pain, No Nausea, No Vomiting, No Diarrhea Genitourinary Symptoms: No Symptoms, No Dysuria Musculoskeletal: No Symptoms, No Back Pain, No Neck Pain Skin: No Symptoms, No Rash Neurological: No Symptoms, No Dizziness, No Focal Weakness, No Sensory Changes Psychological: No Symptoms Endocrine: No Symptoms Hematologic/Lymphatic: No Symptoms Immunological/Allergic: No Symptoms All Other Systems: Reviewed and Negative - Past Medical History Pertinent Past Medical History: Yes Neurological History: No Pertinent History ENT History: No Pertinent History Cardiac History: Arrhythmia, Hypertension Respiratory History: No Pertinent History Endocrine Medical History: No Pertinent History Musculoskeletal History: No Pertinent History GI Medical History: No Pertinent History History: No Pertinent History Psycho-Social History: No Pertinent History Female Reproductive Disorders: No Pertinent History - Past Surgical History Past Surgical History: Yes Neuro Surgical History: No Pertinent History Cardiac: Other Respiratory: No Pertinent History Gastrointestinal: Cholecystectomy Genitourinary: No Pertinent History Musculoskeletal: No Pertinent History Female Surgical History: Hysterectomy Other Surgical History: ablasion--heart times 2 - Female History Hx Last Menstrual Period: hysterectomy 19 years ago Hx Now: No - Social History Smoking Status: Current every day smoker How long have you smoked: 30 years Exposure to second hand smoke: No Drug Use: none Patient Lives Alone: No - Social Determinants of Health Will the patient participate in the screening: Declined to provide - Nursing Vital Signs Nursing Vital Signs: Initial Vital Signs Respiratory Rate 19 08/26/ 23:17 Pain Scale Pain Intensity [Back] 10 Pain Intensity 10 - Physical Exam General Appearance: no apparent distress, alert Eye Exam: PERRL/EOMI, eyes nml inspection Ears, Nose, Throat Exam: normal ENT inspection Neck Exam: normal inspection, full range of motion, No meningismus, No midline tenderness Respiratory Exam: normal breath sounds, lungs clear, airway intact, No respiratory distress Cardiovascular Exam: regular rate/rhythm, normal heart sounds, normal peripheral pulses Gastrointestinal Exam: soft, No tenderness, No mass Extremity Exam: normal inspection, normal range of motion, No calf tenderness, No pedal edema Neurologic Exam: alert, oriented x 3, cooperative, manager cafe II-XII nml as tested, normal mood/affect, nml station & gait, sensation nml, No motor deficits Skin Exam: normal color, warm, dry, No rash Lymphatic Exam: No adenopathy SpO2 Interpretation: normal O2 Delivery: Room Air - Course Nursing assessment & vital signs reviewed: Yes EKG Interpreted by Me: RATE ([id number]), Sinus Rhythm, NORMAL AXIS, NORMAL INTERVALS, NORMAL QRS - CT Exams Chest CT Interpretation: Tele-radiologist Report (Bilateral pulmonary nodules grade 2 benign in appearance very low likelihood of malignancy) Ordered Tests: Active Orders 24 hr Category Date Time Status Quilt Stuffer STAT Care 08/27/24 00:07 Active EKG-ER Only STAT Care 08/27/24 00:06 Active IV Insertion STAT Care 08/27/24 00:06 Active Pulse Oximetry (ED) STAT Care 08/27/24 00:06 Active CHEST WITHOUT CONTRAST [CT] Stat Exams 08/27/24 01:09 Completed CBC W DIFF Stat Lab 08/27/24 00:20 Completed CMP Stat Lab 08/27/24 00:20 Completed D-DIMER QUANTITATIVE Stat Lab 08/27/24 00:20 Completed TROPONIN Q4H Lab 08/27/24 00:20 Completed TROPONIN Q4H Lab 08/27/24 04:15 Ordered TROPONIN Q4H Lab 08/27/24 08:15 Ordered Medication Summary Discontinued Medications Generic Name Dose Route Start Last Admin Trade Name Freq PRN Reason Stop Dose Admin Ketorolac Tromethamine 30 mg 08/27/24 01:08 08/27/24 01:10 Ketorolac Tromethamine 30 Mg/Ml Inj IV 08/27/24 01:09 30 mg STAT ONE Administration Ketorolac Tromethamine Confirm 08/27/24 01:10 Ketorolac Tromethamine 30 Mg/Ml Inj Administered 08/27/24 01:11 Dose 30 mg .ROUTE .STK-MED ONE Morphine Sulfate 4 mg 08/27/24 03:12 08/27/24 03:17 Morphine Sulfate 4 Mg/Ml Injection IV 08/27/24 03:13 4 mg STAT ONE Administration Morphine Sulfate Confirm 08/27/24 03:16 Morphine Sulfate 4 Mg/Ml Injection Administered 08/27/24 03:17 Dose 4 mg .ROUTE .STK-MED ONE Lab/Rad Data: Laboratory Result Diagrams 08/27/24 00:20 08/27/24 00:20 Laboratory Results 08/27/24 08/27/24 08/27/24 Range/Units 00:20 00:20 00:20 WBC (3.98-10.04) x10^3/uL RBC (3.93-5.22) x10^6/uL Hgb (11.2-15.7) g/dL Hct (34.1-44.9) % MCV (79.4-94.8) fL MCH (25.6-32.2) pg MCHC (32.2-35.5) g/dL RDW (11.7-14.4) % Plt Count (182-369) x10^3/uL MPV (9.4-12.3) fL Gran % (34.0-71.1) % Immature Gran % (Auto) (0.001-0.429) % Nucleat RBC Rel Count (0.00-0.2) % Eos # (Auto) (0.04-0.36) x10^3/uL Immature Gran # (Auto) (0.001-0.031) x10^3u/L Absolute Lymphs (auto) (1.18-3.74) x10^3/uL Absolute Monos (auto) (0.24-0.86) x10^3/uL Absolute Nucleated RBC (0.00-0.012) x10^3u/L Lymphocytes % (19.3-51.7) % Monocytes % (4.7-12.5) % Eosinophils % (0.7-5.8) % Basophils % (0.1-1.2) % Absolute Granulocytes (1.56-6.13) x10^3/uL Basophils # (0.01-0.08) x10^3/uL D-Dimer 0.40 (0.0-0.50) mg/L Sodium 137 (135-145) mmol/L Potassium 4.0 (3.5-5.1) mmol/L Chloride 107 (98-107) mmol/L Carbon Dioxide 22 (22-30) mmol/L Anion Gap 12.2 (5-15) MEQ/L BUN 17 (7-17) mg/dL Creatinine 0.88 (0.52-1.04) mg/dL Estimated GFR 80.0 ML/MIN Glucose 100 (74-106) mg/dL Calcium 9.5 (8.4-10.2) mg/dL Total Bilirubin 0.30 (0.2-1.3) mg/dL AST 23 (14-36) U/L ALT 20 (0-35) U/L Alkaline Phosphatase 76 (38-126) U/L Troponin I < 0.012 (0.000-0.033) ng/mL Serum Total Protein 7.1 (6.3-8.2) g/dL Albumin 4.3 (3.5-5.0) g/dL 08/27/24 Range/Units 00:20 WBC 13.0 H (3.98-10.04) x10^3/uL RBC 4.85 (3.93-5.22) x10^6/uL Hgb 14.4 (11.2-15.7) g/dL Hct 42.9 (34.1-44.9) % MCV 88.5 (79.4-94.8) fL MCH 29.7 (25.6-32.2) pg MCHC 33.6 (32.2-35.5) g/dL RDW 12.8 (11.7-14.4) % Plt Count 314 (182-369) x10^3/uL MPV 9.7 (9.4-12.3) fL Gran % 54.2 (34.0-71.1) % Immature Gran % (Auto) 0.4 (0.001-0.429) % Nucleat RBC Rel Count 0.0 (0.00-0.2) % Eos # (Auto) 0.20 (0.04-0.36) x10^3/uL Immature Gran # (Auto) 0.05 H (0.001-0.031) x10^3u/L Absolute Lymphs (auto) 4.82 H (1.18-3.74) x10^3/uL Absolute Monos (auto) 0.84 (0.24-0.86) x10^3/uL Absolute Nucleated RBC 0.00 (0.00-0.012) x10^3u/L Lymphocytes % 37.0 (19.3-51.7) % Monocytes % 6.4 (4.7-12.5) % Eosinophils % 1.5 (0.7-5.8) % Basophils % 0.5 (0.1-1.2) % Absolute Granulocytes 7.05 H (1.56-6.13) x10^3/uL Basophils # 0.07 (0.01-0.08) x10^3/uL D-Dimer (0.0-0.50) mg/L Sodium (135-145) mmol/L Potassium (3.5-5.1) mmol/L Chloride (98-107) mmol/L Carbon Dioxide (22-30) mmol/L Anion Gap (5-15) MEQ/L BUN (7-17) mg/dL Creatinine (0.52-1.04) mg/dL Estimated GFR ML/MIN Glucose (74-106) mg/dL Calcium (8.4-10.2) mg/dL Total Bilirubin (0.2-1.3) mg/dL AST (14-36) U/L ALT (0-35) U/L Alkaline Phosphatase (38-126) U/L Troponin I (0.000-0.033) ng/mL Serum Total Protein (6.3-8.2) g/dL Albumin (3.5-5.0) g/dL - Progress Progress: improved Progress Note: 49-year-old female presents to emergency department for evaluation of left upper back pain. Laboratory workup essentially unremarkable. Troponin negative x 2. CT chest without shows bilateral pulmonary nodules. Nodules appear benign. Otherwise CAT scan is negative. No acute findings. Patient received Toradol for pain control followed by morphine. Pain now resolved. No indication for further workup at this time will discharge home. Patient agrees to follow-up with her primary care doctor within 48 hours for reevaluation. She voices no other complaints or concerns at this time. Portions of this note were created with voice recognition technology. There may be grammatical, spelling, punctuation or sound alike errors Complexity of problem addressed is moderate acute complicated. No critical care time. Complex of data reviewed and analyzed is moderate. Test ordered chest reviewed results analyzed and correlated clinically with history and physical exam. Risk of complication and or risk of morbidity/mortality of patient management is low. Vital stable. Time spent to discharge patient is approximately 20 minutes. Plan of care established for shared decision making. No social determinants of health present to impede follow-up. Portions of this note were created with voice recognition technology. There may be grammatical, spelling, punctuation or sound alike errors 08/27/24 03:37 Counseled pt/family regarding: lab results, diagnosis, need for follow-up, rad results - Departure Departure Disposition: Home Clinical Impression: Back pain, Lung nodule Condition: Stable Critical Care Time: No Referrals: JOJO RANDALL, [Primary Care Provider] - Follow up/PCP as directed Additional Instructions: Discharge/Care Plan BRYCE BROUSSARD was seen on 08/27/24 in the Emergency Room. The patient was counseled regarding Diagnosis,Lab results, Imaging studies, need for follow up and when to return to the Emergency Room. Prescriptions given: Discharge Note I have spoken with the patient and/or caregivers. I have explained the patient's condition, diagnosis and treatment plan based on the information available to me at this time. I have answered the patient's and/or caregiver's questions and addressed any concerns. The patient and/or caregivers have as good understanding of the patient's diagnosis, condition and treatment plan as can be expected at this point. The vital signs have been stable. The patient's condition is stable and appropriate for discharge from the emergency department. The patient will pursue further outpatient evaluation with the primary care physician or other designated or consulting physician as outlined in the discharge instructions. The patient and/or caregivers are agreeable to this plan of care and follow-up instructions have been explained in detail. The patient and/or caregivers have received these instruction. The patient/and or caregivers are aware that any significant change in condition or worsening of symptoms should prompt an immediate return to this or the closest emergency department or call 911.
[2024-08-27 00:34] LABS: Absolute Neutrophil Ct (ANC) 7.05 x10^3/uL (1.56-6.13); BASOPHIL % 0.5 % (0.1-1.2); Basophil (Absolute #) 0.07 x10^3/uL (0.01-0.08); Eosinophil % 1.5 % (0.7-5.8); Hematocrit 42.9 % (34.1-44.9); Hemoglobin 14.4 g/dL (11.2-15.7); IMMATURE GRAN # 0.05 x10^3u/L (0.001-0.031); IMMATURE GRAN % 0.4 % (0.001-0.429); Lymphocyte (Absolute #) 4.82 x10^3/uL (1.18-3.74); Mean Cell Volume 88.5 fL (79.4-94.8); Mean Corpuscular Hemoglobin 29.7 pg (25.6-32.2); Mean Corpuscular Hgb Concent. 33.6 g/dL (32.2-35.5); Mean Platelet Volume 9.7 fL (9.4-12.3); Monocyte (Absolute #) 0.84 x10^3/uL (0.24-0.86); Monocytes % 6.4 % (4.7-12.5); Neutrophil % 54.2 % (34.0-71.1); Platelet Count 314 x10^3/uL (182-369); Red Blood Count 4.85 x10^6/uL (3.93-5.22); Red Cell Distribution Width 12.8 % (11.7-14.4)
[2024-08-27 00:47] LABS: ALBUMIN 4.3 g/dL (3.5-5.0); ANION GAP 12.2 MEQ/L (5-15); BILIRUBIN,TOTAL 0.3 mg/dL (0.2-1.3); Calcium 9.5 mg/dL (8.4-10.2); Creatinine 1 0.88 mg/dL (0.52-1.04); Total Protein 7.1 g/dL (6.3-8.2)
[2024-08-27] MEDS ORDERED: TORAdol 30 mg Injection ONE (01:10)
[2024-08-27] MEDS: TORAdol 30 mg Injection IV ONE (01:10)
[2024-08-27 02:47] VITALS: O2SAT 95
[2024-08-27 03:07] VITALS: BP 179/105; PULSE 73; RESP 23
[2024-08-27] MEDS ORDERED: MORPHINE SULFATE 4 MG INJ ONE (03:16)
[2024-08-27] MEDS: MORPHINE SULFATE 4 MG INJ IV ONE (03:17)
--- NOTE | 2024-08-27 03:18 | XRAY ---
CLINICAL HISTORY: pain COMPARISON: No prior studies are available for comparison. TECHNIQUE: Contiguous 3.[address] images of the chest were acquired without administration of intravenous contrast. Coronal and sagittal reconstructions were obtained with axial MIPi images. One of the following dose reduction techniques were utilized for this exam: Automated exposure control, adjustment of the mA and/or kV according to patient size, use of iterative reconstruction. FINDINGS: Pulmonary Parenchyma: Lungs are clear with no evidence of consolidation, collapse, or focal lesions. Bilateral multiple subpleural and peripheral pulmonary nodules noted at upper and lower lobes of ground glass and soft tissue density as follows: Right upper lung apical segment subpleural pulmonary nodule measuring 4 mm. Left upper lobe posterior segment subpleural nodule measuring 2.3 mm. Right upper lobe posterior segment subpleural nodule measuring 4.6 mm Right middle lobe lateral segment subpleural nodule measuring 4 mm. Right lower lobe apical segment subpleural nodule measuring 3.4 mm Right lower lobe apical segment nodule measuring 5 mm Pleural-based right lower lobe nodule measuring 6 mm Right lower lobe posterior segment pleural-based density nodules 3 mm Right lower lobe lateral segment subpleural nodule measuring 2 mm. Left lower lobe posterior segment preliminarily based ground-glass density nodule measuring 2 mm Left lower lobe posterior segment tiny soft tissue density nodule measuring 1.7 mm 2 small ground-glass density nodules noted at the inferior lingula measuring 2 and 3 mm respectively Pleura: No pleural effusion or pleural thickening. Heart: Normal size, no pericardial effusion. Mediastinum: No mediastinal mass or abnormal lymphadenopathy. Hilar Structures: Hilar structures are normal without enlargement. Chest Wall: No mass lesions or abnormalities in the chest wall. Upper Abdomen: Visualized portions of the upper abdomen are unremarkable. Spine: Normal alignment and no significant degenerative changes in the visualized spine. Lung-RADS Assessment: [ Lung-RADS category 2] IMPRESSION: 1. No acute cardiopulmonary compromise. 2. Bilateral pulmonary nodules as described. 3. Lung-RADS Category: [ Category 2]. Lung-RADS Category: 0 - Incomplete. Additional imaging needed. 1 - Negative. No nodules or definitely benign nodules. 2 - Benign appearance or behavior. Very low likelihood of malignancy. 3 - Probably benign. Short-term follow-up suggested. 4A - Suspicious. Consider additional diagnostic testing. 4B - Suspicious. Additional diagnostic testing and/or tissue sampling is suggested. 4X - Highly suspicious of malignancy. Urgent evaluation needed. Electronically Signed by: Pavan Grimm MD. (08/27/2024 03:13:41 EST)
== END 2024-08-27 04:00 | disposition home or self-care (01) ==
LOC: ED 22:59
DX: M54.6 Pain in thoracic spine (principal); R91.8 Other nonspecific abnormal finding of lung field
CPT/HCPCS: 36415; 71250; 80053; 84484; 85025; 85379; 93005; 93041; 94760; 96374; 99284; 99285; J1885; J2270